=== PATIENT | female | born 1975 | race Caucasian/White ===

== ENCOUNTER → 2017-05-18 | Outpatient (CLI) | payer OTHER ==
[~2017-05-18] MED LIST: ATIVAN0.5 MG PO; CLINDAMYCIN HC300 MG PO; DAYPRO600 M1 PO; MOTRIN800 MG PO; NAPROSYN500 MG PO; ROBAXIN750 MG PO; SEROQUEL XR400 MG PO; ULTRAM50 MG PO; ZOFRAN4 MG PO
[2017-05-18 14:01] LABS: ALBUMIN 3.5 gm/dl (3.1-4.5); ALKALINE PHOSPHATASE 64 U/L (45-117); BILIRUBIN, TOTAL 0.2 mg/dl (0.2-1.0); BUN 12 mg/dl (7-24); CARBON DIOXIDE 28 mmol/L (21-32); CHLORIDE 104 mmol/L (98-107); CHOLESTEROL 291 mg/dL (<200); CPK 119 U/L (26-192); EST GLOM FILT AFRICAN AMERICAN > 60 ml/min; GLUCOSE 100 mg/dL (65-99); HDL CHOLESTEROL 43 mg/dl (40-60); LDL CHOLESTEROL 175 mg/dL (9-159); POTASSIUM 4.1 mmol/L (3.5-5.1); SGOT/AST 14 IU/L (3-35); SGPT/ALT 15 U/L (12-78); SODIUM 143 mmol/L (136-145); TOTAL PROTEIN 7.5 gm/dL (6.4-8.2); TRIGLYCERIDES 364 mg/dl (<150); VLDL CHOLESTEROL 73 mg/dL (6-40)
== END | disposition home or self-care (01) ==
LOC: LAB 13:20
PROVIDERS: Family Medicine
DX: E78.00 Pure hypercholesterolemia, unspecified (principal); E55.9 Vitamin D deficiency, unspecified; F17.200 Nicotine dependence, unspecified, uncomplicated

== ENCOUNTER → 2019-11-19 | Outpatient (CLI) | payer OTHER | END | disposition home or self-care (01) | LOC: US 15:36 | DX: D17.0 Benign lipomatous neoplasm of skin and subcutaneous tissue of head, face and neck (principal) ==

== ENCOUNTER → 2020-11-06 | Outpatient (CLI) | payer SELFPAY | END | disposition home or self-care (01) | LOC: COVID19 10:24 | PROVIDERS: ATTEND Internal Medicine | DX: Z20.828 Contact with and (suspected) exposure to other viral communicable diseases (principal) ==

== ENCOUNTER → 2021-12-09 | Outpatient (CLI) | payer BC | END | disposition home or self-care (01) | LOC: COVID19 16:29 | PROVIDERS: ATTEND Internal Medicine | DX: Z20.822 Contact with and (suspected) exposure to COVID-19 (principal) ==

== ENCOUNTER → 2021-12-13 | Outpatient (CLI) | payer BC | END | disposition home or self-care (01) | LOC: COVID19 15:03 | PROVIDERS: ATTEND Student in an Organized Health Care Education/Training Program | DX: Z20.822 Contact with and (suspected) exposure to COVID-19 (principal) ==